=== PATIENT | male | born 1995 | race Caucasian/White ===

== ENCOUNTER → 2018-05-22 | Outpatient (REF) | payer BC ==
[~2018-05-22] MED LIST: LEVO-3 PO
[2018-05-22 14:51] LABS: PLATELET COUNT, AUTOMATED 279 K/uL (150-450)
== END ==
LOC: ZZSTITCHES 14:40
PROVIDERS: ATTEND Physician Assistant
DX: R42 Dizziness and giddiness (principal); R00.2 Palpitations; R03.0 Elevated blood-pressure reading, without diagnosis of hypertension; B27.80 Other infectious mononucleosis without complication
CPT/HCPCS: 82040; 82247; 82310; 82374; 82435; 82565; 82947; 84075; 84132; 84155; 84295; 84450; 84460; 84520; 85025; 85379